=== PATIENT | female | born 1960 | race Caucasian/White ===

== ENCOUNTER 2024-10-01 08:33 | Outpatient (OUT) | payer MEDICARE, SELFPAY ==
--- NOTE | 2024-10-01 08:39 | MM_ITS ---
Patient Name: CASSIUS LIN MR#: [id number] : 1960 Exam Date: 10/01/2024 Ordering Doctor: DR Gabriel Guzmán . RADIOLOGY REPORT PROCEDURE: MM TOMOSYNTHESIS SCREENING BI COMPARISON: MAMMO DANI SCREEN, 03/20/2022. MAMMO DANI SCREEN, 03/17/2021. MAMMO DANI SCREEN, 03/16/2020. MG MAMM DANI DIAG W CAD DIG, 03/10/2013. INDICATIONS: Screening Calculator Name NCI Breast Cancer Risk Assessment Tool 5 Year Breast Cancer Risk n/a% Lifetime Breast Cancer Risk n/a% Personal Breast Cancer Yes, LT BREAST CA AGE 48 Personal Ovarian Cancer No Treatments LUMPECTOMY LT BREAST, CHEMO, TOMOXIFIN Family Cancers None LOCATION: [facility] BREAST COMPOSITION: There are scattered areas of fibroglandular density. FINDINGS: DIAGNOSTIC CATEGORY 1--NEGATIVE. RIGHT BREAST: No significant suspicious finding. LEFT BREAST: No significant suspicious finding. RECOMMENDATIONS: ROUTINE MAMMOGRAM AND CLINICAL EVALUATION IN 12 MONTHS. PLEASE NOTE: A NORMAL MAMMOGRAM DOES NOT EXCLUDE THE POSSIBILITY OF BREAST CANCER. A CLINICALLY SUSPICIOUS PALPABLE LUMP SHOULD BE BIOPSIED. Dictated by: Gary Matt DO on 10/02/2024 at 09:47 Approved by: Gary Matt DO on 10/02/2024 at 09:50
== END 2024-10-01 08:34 | disposition home or self-care (01) ==
LOC: MAMMO 08:33
PROVIDERS: Visit Provider Family Medicine
DX: Z12.31 Encounter for screening mammogram for malignant neoplasm of breast (principal); Z85.3 Personal history of malignant neoplasm of breast
CPT/HCPCS: 77063; 77067